=== PATIENT | male | born 1970 | race African-American/Black ===

== ENCOUNTER 2024-07-23 13:28 | Inpatient (IN) | payer OTHER ==
[2024-07-23] MEDS ORDERED: NALOXONE (NARCAN) HCL 4 MG/0.1 ML SPRAY NS PRN (14:17)
[2024-07-23] MEDS ORDERED: ACETAMINOPHEN 325 MG TABLET (FP) PO PRN (14:17)
[2024-07-23] MEDS ORDERED: IBUPROFEN 600 MG TABLET (FP) PO PRN (14:17)
[2024-07-23] MEDS ORDERED: MAGNESIUM HYDROX 2400MG/30ML ORAL SUSPENSION 30 ML CUP PO PRN (14:17)
[2024-07-23] MEDS ORDERED: POLYETHYLENE GLYCOL (HEALTHYLAX) 3350 17 GM PACKET PO PRN (14:17)
[2024-07-23] MEDS ORDERED: IBUPROFEN 400 MG TABLET (FP) PO PRN (14:17)
[2024-07-23] MEDS ORDERED: hydrOXYzine PAMOATE 25 MG CAPSULE (FP) PO PRN (14:17)
[2024-07-23] MEDS ORDERED: LOPERAMIDE HCL 2 MG CAPSULE PO PRN (14:17)
[2024-07-23] MEDS ORDERED: BENZONATATE 200 MG CAPSULE PO PRN (14:17)
[2024-07-23] MEDS ORDERED: NICOTINE POLACRILEX 2 MG GUM BUC PRN (14:17)
[2024-07-23] MEDS ORDERED: NICOTINE POLACRILEX 2 MG LOZENGE BC PRN (14:17)
[2024-07-23] MEDS ORDERED: BENZOCAINE/MENTHOL (CHLORASEPTIC ) LOZENGE MM PRN (14:17)
[2024-07-23] MEDS ORDERED: guaiFENesin 600 MG TABLET.ER (FP) PO PRN (14:17)
[2024-07-23] MEDS ORDERED: MAG HYDROX/AL HYDROX/SIMETH 30 ML UNIT-DOSE CUP PO PRN (14:17)
[2024-07-23] MEDS: MELATONIN 5 MG TABLETS PO SCH (21:02)
[2024-07-23] MEDS: THIAMINE 100 MG TABLET PO SCH (21:02)
[2024-07-23] MEDS: QUEtiapine FUMARATE 50 MG TABLET PO SCH (21:03)
[2024-07-24] MEDS: methaDONE HCL 40 MG DISPERSABLE TABLET PO SCH (06:42)
[2024-07-24] MEDS: PRENATAL VITAMINS W/ FOLIC ACID TABLET (FP) PO SCH (10:03)
[2024-07-25] MEDS: TUBERCULIN PPD 5 TU/0.1ML VIAL ID ONE (10:19)
[2024-07-25] MEDS ORDERED: TUBERCULIN PPD 5 TU/0.1ML VIAL ID ONE (15:22)
[2024-07-29 05:38] VITALS: BP 131/78; PULSE 72; RESP 16; TEMP 97.8
== END 2024-07-29 11:14 | disposition left against medical advice (07) | DRG 770 ==
LOC: YASAS 13:28 → Y3W 13:29
PROVIDERS: ADMIT Psychiatry & Neurology Pain Medicine; ATTEND Psychiatry & Neurology Pain Medicine
PROC: HZ42ZZZ Group Counseling for Substance Abuse Treatment, Cognitive-Behavioral (ICD-10-PCS; principal; 2024-07-23)
DX: F11.20 Opioid dependence, uncomplicated (principal); F10.20 Alcohol dependence, uncomplicated; F12.20 Cannabis dependence, uncomplicated; F25.9 Schizoaffective disorder, unspecified; F31.9 Bipolar disorder, unspecified; F43.10 Post-traumatic stress disorder, unspecified; M54.89 Other dorsalgia